=== PATIENT | female | born 1985 | race Caucasian/White ===

== ENCOUNTER 2020-09-11 18:10 | Emergency (ER) | payer OTHER | END 2020-09-11 20:13 | disposition left against medical advice (07) | LOC: ER1 18:10 | DX: Z53.21 Procedure and treatment not carried out due to patient leaving prior to being seen by health care provider (principal) ==

== ENCOUNTER 2021-09-27 14:08 | Emergency (ER) | payer OTHER ==
[~2021-09-27 14:08] MED LIST: IBUPROFEN600 MG PO; NORFLEX 100 MG100 MG PO; PREDNISONE 50 M50 MG PO
[2021-09-27] MEDS ORDERED: TRAMADOL HCL50 MG PO (20:06)
[2021-09-27] MEDS ORDERED: ANTIVERT50 MG PO (20:06)
[2021-09-27] MEDS ORDERED: PREDNISONE 20 M20 MG PO (20:13)
== END 2021-09-27 20:35 | disposition home or self-care (01) ==
LOC: ER1 14:08
DX: M54.12 Radiculopathy, cervical region (principal); R42 Dizziness and giddiness; Z90.49 Acquired absence of other specified parts of digestive tract; Z88.0 Allergy status to penicillin; F17.200 Nicotine dependence, unspecified, uncomplicated
CPT/HCPCS: 70496; 70498; 99284; Q9967

== ENCOUNTER → 2021-10-17 | Outpatient (CLI) | payer OTHER ==
[~2021-10-17] MED LIST changes: +ANTIVERT50 MG PO; +PREDNISONE 20 M20 MG PO; +TRAMADOL HCL50 MG PO
== END ==
LOC: KOH-I 16:19
DX: M25.512 Pain in left shoulder (principal); M54.50 Low back pain, unspecified
CPT/HCPCS: 72100; 73030